=== PATIENT | female | born 1945 | race Caucasian/White ===

== ENCOUNTER 2022-04-08 20:27 | Emergency (ER) | payer OTHER, MEDICARE ==
[~2022-04-08] VITALS: Ht 172.7 cm; Wt 102.1 kg
[2022-04-08] MEDS ORDERED: LIDO700A20 TOP (21:45)
== END 2022-04-08 23:00 | disposition home or self-care (01) ==
LOC: ER 20:27
DX: M54.50 Low back pain, unspecified (principal); V49.9XXA Car occupant (driver) (passenger) injured in unspecified traffic accident, initial encounter
CPT/HCPCS: 72100; A9270